=== PATIENT | male | born 1995 | race Caucasian/White ===

== ENCOUNTER 2017-10-11 22:54 | Emergency (ER) | payer OTHER ==
--- NOTE | 2017-10-12 00:40 | EDPHY ---
H & P Stated Complaint: Lac on R buttock. Time Seen by Provider: 10/11/17 23:15 HPI/ROS: Chief Complaint: Buttocks laceration HPI: 22-year-old male was Twerking with his buttocks adjacent to a window when the window shattered and a shard of glass went into his right buttocks. Patient states that there was a piece of glass protruding and he removed it. He is uncertain if there is any other foreign body. Denies any other injuries. He is up-to-date on his tetanus. He has been drinking this evening. ROS: 10 point Review of Systems is negative except as noted in the HPI. PMH: Denies Social History: No smoking, no alcohol, no recreational drug use Family History: non-contributory Physical Exam: General: Awake, alert, no acute distress Right buttocks: Patient has a 2.5 cm laceration in his mid right buttocks. There is a palpable foreign body medial to the laceration just under the skin. Skin: No rash - Personal History Current Tetanus/Diphtheria Vaccine: Yes Current Tetanus Diphtheria and Acellular Pertussis (TDAP): Yes - Medical/Surgical History Hx Asthma: No Hx Chronic Respiratory Disease: No Hx Diabetes: No Hx Cardiac Disease: No Hx Renal Disease: No Hx Cirrhosis: No Hx Alcoholism: No Hx HIV/AIDS: No Hx Splenectomy or Spleen Trauma: No Other PMH: Denies - Social History Smoking Status: Never smoked Constitutional: Initial Vital Signs Temperature (C) 37 C 10/11/17 23:04 Heart Rate 96 10/11/17 23:04 Respiratory Rate 17 10/11/17 23:04 Blood Pressure 122/82 H 10/11/17 23:04 O2 Sat (%) 95 10/11/17 23:04 O2 Delivery Mode Room Air Allergies/Adverse Reactions: No Known Allergies Allergy (Unverified 10/11/17 23:08) Home Medications: Medication Instructions Recorded NK [No Known Home Meds] 10/11/17 Medical Decision Making Procedures: Procedure: Soft tissue Foreign body removal Patient presenting with a 2.5 cm laceration to his right buttocks from a shard of glass. On palpation with a probe there is a palpable foreign body. Under fluoroscopic study performed by myself a radiopaque foreign body was noted. A 6.5 cm shard of glass was removed with forceps. Further probing and evaluation under fluoroscopy did not reveal any other foreign bodies. Procedures performed by myself. No complications. Procedure: Laceration repair. Verbal consent was obtained from the patient. The 2.5 cm laceration on the right buttocks was anesthetized in the usual fashion. The wound was irrigated, draped and explored to its base with a probe. See soft tissue foreign body procedure note.. There were no deep structures involved. No tendon injury was identified. The wound was irrigated with 1 L of saline irrigation. The wound was repaired with 2 4-0 Ethilon horizontal mattress sutures and 3, 4-0 Ethilon simple interrupted sutures. The wound repair was uncomplicated. The procedure was performed by myself. Departure - Departure Disposition: Home, Routine, Self-Care Clinical Impression: Soft tissues foreign body, Laceration Condition: Good Instructions: Care For Your Stitches (ED), Laceration (ED) Additional Instructions: Sutures need to be removed in 10 days, return to the emergency department or follow up at [facility] to have them removed. Return to the emergency department for redness, discharge from the wound, fevers , increasing pain, or any other concerns. [facility] [Clinic] - As per Instructions
[2017-10-12 00:50] VITALS: BP 118/80
== END 2017-10-12 00:53 | disposition home or self-care (01) ==
PROC: 0HQ8XZZ Repair Buttock Skin, External Approach (ICD-10-PCS; principal; 2017-10-11)
DX: S31.812A Laceration with foreign body of right buttock, initial encounter (principal); W25.XXXA Contact with sharp glass, initial encounter; Y93.49 Activity, other involving dancing and other rhythmic movements

== ENCOUNTER → 2018-04-14 | Emergency (ER) | payer OTHER ==
[2018-04-14 12:14] VITALS: BP 112/58
--- NOTE | 2018-04-14 12:22 | EDPHY ---
H & P Stated Complaint: R wrist pain post fall last evening Time Seen by Provider: 04/14/18 12:14 - Personal History Current Tetanus Diphtheria and Acellular Pertussis (TDAP): Yes - Medical/Surgical History Hx Asthma: No Hx Chronic Respiratory Disease: No Hx Diabetes: No Hx Cardiac Disease: No Hx Renal Disease: No Hx Cirrhosis: No Hx Alcoholism: No Hx HIV/AIDS: No Hx Splenectomy or Spleen Trauma: No Other PMH: healthy. Denies - Social History Smoking Status: Never smoked Constitutional: Initial Vital Signs Temperature (C) 37 C 04/14/18 12:10 Heart Rate 80 04/14/18 12:10 Respiratory Rate 16 04/14/18 12:10 Blood Pressure 112/58 L 04/14/18 12:10 O2 Sat (%) 96 04/14/18 12:10 O2 Delivery Mode Room Air Allergies/Adverse Reactions: No Known Allergies Allergy (Verified 04/14/18 12:10) Home Medications: Medication Instructions Recorded Ibuprofen [Motrin] 800 mg PO Q8 #20 tab 04/14/18 oxyCODONE IR [Oxycodone Ir (*)] 5 - 10 mg PO Q6 PRN #20 tab 04/14/18 Medical Decision Making - Diagnostics Imaging: Discussed imaging studies w/ director call Radiologist, I viewed and interpreted images myself ED Course/Re-evaluation: CHIEF COMPLAINT: Right wrist pain HISTORY OF PRESENT ILLNESS: The patient is a healthy 23 y/o male arriving with his friend complaining of right wrist pain secondary to a fall last night. He describes falling onto his outstretched right palm and rolling onto his right shoulder. He denies head strike, loss of consciousness, or any other injuries. No weakness or paresthesias. He is normally healthy. REVIEW OF SYSTEMS: A comprehensive 10 system review of systems is otherwise negative aside from elements mentioned in the history of present illness and medical decision making. PHYSICAL EXAM: HR, BP, O2 Sat, RR. Temp noted General Appearance: Alert, well hydrated, appropriate, and non-toxic appearing. Head: Atraumatic without scalp tenderness or obvious injury Eyes: Pupils equal, round, reactive to light and accommodation, EOMI, no trauma , no injection. Nose: Atraumatic, no rhinorrhea, clear. Throat: Mucus membranes moist. Neck: Supple, nontender, no lymphadenopathy. Respiratory: No retractions, no distress, no wheezes, and no accessory muscle use. Lungs are clear to auscultation bilaterally. Cardiovascular: Regular rate and rhythm, no murmurs, rubs, or gallops. Good capillary refill all extremities. Gastrointestinal: Abdomen is soft, nontender, non-distended, no masses, no rebound, no guarding, no peritoneal signs. Musculoskeletal: Abrasion over right shoulder, no tenderness over AC joint or along clavicle. Tenderness over right wrist. Otherwise normal active ROM of all extremities, atraumatic. Neurological: Alert, appropriate, and interactive. The patient has non-focal cranial nerves, motor, sensory, and cerebellar exam. Skin: No rashes, good turgor, no nodules on palpation. Past medical history: Denies Past surgical history: Denies Family history: Noncontributory Social history: Friend at bedside. [employer] student. Lives in [place]. DIAGNOSTICS/PROCEDURES/CRITICAL CARE TIME: Right wrist x-ray: triquetral and scaphoid fractures DIFFERENTIAL DIAGNOSIS: The differential diagnosis for the patient's injury included but was not limited to fracture, ligamentous injury, contusion, muscular strain. MEDICAL DECISION MAKING: This is a healthy 23 y/o male who presents with right wrist pain and right shoulder abrasions secondary to a mechanical fall last night. He has tenderness over his triquetrum and scaphoid on his right hand. He is neurovascularly intact without evidence of compartment syndrome, skin tenting, or skin trauma over his wrist. Plan for x-ray to evaluate for fracture. X-ray shows triquetrum and multiple scaphoid fractures. Plan for splinting and discharge with [place] and referral to hand surgery for follow up. Standard care instructions and return precautions discussed. He is comfortable with this plan. Departure - Departure Disposition: Home, Routine, Self-Care Clinical Impression: Scaphoid fracture of wrist Qualifiers: Encounter type: initial encounter Scaphoid bone location: unspecified portion of scaphoid Fracture type: closed Fracture alignment: nondisplaced Laterality: right Qualified Code(s): S62.001A - Unspecified fracture of navicular [scaphoid ] bone of right wrist, initial encounter for closed fracture Triquetral fracture Qualifiers: Encounter type: initial encounter Fracture type: closed Fracture alignment: nondisplaced Laterality: right Qualified Code(s): S62.114A - Nondisplaced fracture of triquetrum [cuneiform] bone, right wrist, initial encounter for closed fracture Condition: Good Instructions: Hydrocodone/Acetaminophen (By mouth), Wrist Fracture in Adults ( ED) Additional Instructions: 1. Take 800mg ibuprofen every 8 hours for pain and inflammation over the next few days. 2. Use [place] as prescribed when needed for severe pain. This medication can make you drowsy and constipated. Do not use prior to driving or operating machinery. 3. Wear splint until follow up with orthopedist. 4. Follow up with hand specialist in the next week for reevaluation. 5. Return to the ED for worsening of condition. Referrals: Trevor Jacobo MD [Medical Doctor] - As per Instructions Prescriptions: Ibuprofen [Motrin] 800 mg PO Q8 #20 tab oxyCODONE IR [Oxycodone Ir (*)] 5 - 10 mg PO Q6 PRN #20 tab PRN Reason: Pain, Severe Report Scribed for: Vinay Cronin Report Scribed by: Kamille Weeks Date of Report: 04/14/18 Time of Report: 13:02
== END | disposition home or self-care (01) ==
PROC: 2W3CX1Z Immobilization of Right Lower Arm using Splint (ICD-10-PCS; principal; 2018-04-14)
DX: S62.011A Displaced fracture of distal pole of navicular [scaphoid] bone of right wrist, initial encounter for closed fracture (principal); S62.111A Displaced fracture of triquetrum [cuneiform] bone, right wrist, initial encounter for closed fracture; W19.XXXA Unspecified fall, initial encounter; Y92.9 Unspecified place or not applicable; Y93.9 Activity, unspecified; Y99.9 Unspecified external cause status
CPT/HCPCS: A4565